=== PATIENT | female | born 1980 | race American Indian/Alaskan Native ===

== ENCOUNTER 2020-11-16 12:11 | Emergency (ER) | payer MEDICAID ==
[2020-11-16 12:20] VITALS: BP 121/74
[2020-11-16] MEDS ORDERED: SODIUM CHLORIDE 0.9% 1000 ML 1,000 ML IV ONE (12:38)
[2020-11-16] MEDS ORDERED: ONDANSETRON 4 MG/2 ML INJ IV ONE (12:38)
--- NOTE | 2020-11-16 13:05 | Emergency Department Report ---
ED N/V/D HPI - General Chief complaint: Nausea/Vomiting/Diarrhea Stated complaint: 7 WKS NOT EATING Time Seen by Provider: 11/16/20 12:22 Source: patient Mode of arrival: Wheelchair Limitations: No Limitations - History of Present Illness Initial comments: The patient was evaluated in the emergency department for symptoms described in the history of present illness. He/she was evaluated in the context of the global COVID-19 pandemic, which necessitated consideration that the patient might be at risk for infection with the virus that causes COVID-19. Institutional protocols and algorithms that pertain to the evaluation of patients at risk for COVID-19 are in a state of rapid change based on information released by regulatory bodies including the CDC and federal and state organizations. These policies and algorithms were followed during the patient's care in the emergency department. Please note that these policies, procedures and recommendations changed on a rapid basis. 40-year-old morbid obese -[place] female who reports is 7 weeks presents to the emergency room for nausea vomiting x1 week. Patient states she is not able to keep anything down. Patient states that she started to have some weakness. She is 4 para 2 with last menstrual period 10/29/2020. She denies any vaginal bleeding or vaginal discharge no dysuria no pelvic pain or cramping. She does report her urine is orange. She states that she is followed by [facility] at [facility]. She denies any fever chills no chest pain no shortness of breath MD complaint: nausea, vomiting Onset/Timin -: week(s) Description of Vomiting: watery, bilious Associated Abdominal Pain: No Severity: moderate Improves with: none Worsens with: eating Associated Symptoms: nausea/vomiting, weakness. denies: chest pain, cough, diaphoresis, fever/chills, headaches, loss of appetite, shortness of breath, syncope - Related Data Home Medications Medication Instructions Recorded Confirmed Last Taken Multivitamin [Multi-Vitamin Daily] 1 each PO DAILY 09/25/13 10/06/13 09/29/13 Previous Rx's Medication Instructions Recorded Last Taken Type Ondansetron [Zofran Odt] 4 mg PO Q8HR PRN #12 tab.rapdis 11/16/20 Unknown Rx Allergies Allergy/AdvReac Type Severity Reaction Status Date / Time tramadol Allergy Swelling Verified 08/27/14 14:19 ED Review of Systems ROS: Stated complaint: 7 WKS NOT EATING Other details as noted in HPI Comment: All other systems reviewed and negative ED Past Medical Hx - Past Medical History Previous Medical History?: Yes Hx Hypertension: No Hx Heart Attack/AMI: No Hx GERD: Yes Hx Renal Disease: No Hx Arthritis: Yes Hx Seizures: No Hx Asthma: No Hx COPD: No - Surgical History Past Surgical History?: No - Social History Smoking Status: Former Smoker - Medications Home Medications: Home Medications Medication Instructions Recorded Confirmed Last Taken Type Multivitamin [Multi-Vitamin Daily] 1 each PO DAILY 09/25/13 10/06/13 09/29/13 History Ondansetron [Zofran Odt] 4 mg PO Q8HR PRN #12 tab.rapdis 11/16/20 Unknown Rx ED Physical Exam - General Limitations: No Limitations General appearance: alert, in no apparent distress - Head Head exam: Present: atraumatic, normocephalic - Eye Eye exam: Present: normal appearance - ENT ENT exam: Present: mucous membranes dry - Neck Neck exam: Present: normal inspection - Respiratory Respiratory exam: Present: normal lung sounds bilaterally. Absent: respiratory distress - Cardiovascular Cardiovascular Exam: Present: regular rate, normal rhythm. Absent: systolic murmur, diastolic murmur, rubs, gallop - GI/Abdominal GI/Abdominal exam: Present: soft, normal bowel sounds - Extremities Exam Extremities exam: Present: normal inspection - Back Exam Back exam: Present: normal inspection - Neurological Exam Neurological exam: Present: alert, oriented X3 - Psychiatric Psychiatric exam: Present: normal affect, normal mood - Skin Skin exam: Present: warm, dry, intact, normal color. Absent: rash ED Course Vital Signs 11/16/20 11/16/20 12:15 12:26 Temperature 98.9 F Pulse Rate 78 Respiratory 16 Rate Blood Pressure 121/74 [Left] O2 Sat by Pulse 99 Oximetry ED Medical Decision Making - Lab Data Result diagrams: 11/16/20 12:40 11/16/20 12:40 - Medical Decision Making 40-year-old morbid obese -[place] female who reports is 7 weeks presents to the emergency room for nausea vomiting x1 week. Patient states she is not able to keep anything down. Patient states that she started to have some weakness. She is 4 para 2 with last menstrual period 10/29/2020. She denies any vaginal bleeding or vaginal discharge no dysuria no pelvic pain or cramping. She does report her urine is orange. She states that she is followed by [facility] TECHNICIAN at [facility]. She denies any fever chills no chest pain no shortness of breath CBC CMP urinalysis lipase, INT normal saline IV Zofran 4 mg Critical care attestation.: If time is entered above; I have spent that time in minutes in the direct care o f this critically ill patient, excluding procedure time. ED Disposition Clinical Impression: Hyperemesis gravidarum before end of 22 week gestation with carbohydrate depletion Disposition: HOME / SELF CARE / HOMELESS Is pt being admited?: No Does the pt Need Aspirin: No Condition: Stable Instructions: Hyperemesis Gravidarum Additional Instructions: All labs are stable. I recommend taking the Zofran as needed. Increase your fluid intake advance your diet as tolerated and follow-up with your HEAT TRANSFER TECHNICIAN. Prescriptions: Ondansetron [Zofran Odt] 4 mg PO Q8HR PRN #12 tab.rapdis PRN Reason: Nausea And Vomiting Referrals: [facility] [Provider Group] - 3-5 Days Forms: Work/School Release Form(ED)
[2020-11-16 13:30] LABS: Basophils # (Auto) 0.1 K/mm3 (0.0-0.1); Eosinophils # (Auto) 0.1 K/mm3 (0.0-0.4); Eosinophils % (Auto) 1.5 % (0.0-4.3); Monocytes # (Auto) 0.6 K/mm3 (0.0-0.8); Monocytes % (Auto) 6.9 % (0.0-7.3)
[2020-11-16 14:00] LABS: Alanine Aminotransferase 9 units/L (7-56); Albumin 4.7 g/dL (3.9-5); BUN/Creatinine Ratio 11; Blood Urea Nitrogen 8 mg/dL (7-17); Hemolysis Index 6
[2020-11-16 14:02] LABS: Hemoglobin 13.9 gm/dl (10.1-14.3); Mean Corpuscular HGB Conc 34 % (30-34); Mean Corpuscular Volume 99 fl (79-97); Platelet Count 470 K/mm3 (140-440); Red Blood Count 4.14 M/mm3 (3.65-5.03); Red Cell Distribution Width 12.3 % (13.2-15.2)
[2020-11-16 14:06] LABS: Basophils % (Auto) 1.2 % (0.0-1.8); Lymphocytes # (Auto) 1.7 K/mm3 (1.2-5.4); Lymphocytes % (Auto) 19.1 % (13.4-35.0)
[2020-11-16 14:42] LABS: HCG Qualitative,Urine Positive (Negative)
== END 2020-11-16 15:07 | disposition home or self-care (01) ==
LOC: ED 12:11
DX: O21.1 Hyperemesis gravidarum with metabolic disturbance (principal); Z3A.01 Less than 8 weeks gestation of pregnancy; K21.9 Gastro-esophageal reflux disease without esophagitis; M19.90 Unspecified osteoarthritis, unspecified site; Z87.891 Personal history of nicotine dependence; Z88.5 Allergy status to narcotic agent
CPT/HCPCS: 36415; 80053; 81025; 83690; 85025; 96361; 96374; 99283; J2405; J7030